=== PATIENT | female | born 1935 | race Two or more races ===

== ENCOUNTER 2021-07-05 10:20 | Outpatient (REF) | payer OTHER, SELFPAY ==
[2021-07-05 10:46] LABS: MANUAL DIFF FLAG NO
[2021-07-05 11:02] LABS: Basophils Percent Auto 0.3 % (0-2); Eosinophils Absolute Auto 0.2 X10*3/uL (0.0-0.4); Eosinophils Percent Auto 3.5 % (0-4); Hematocrit 33.8 % (37.0-47.0); Hemoglobin 10.8 g/dl (12.0-16.0); Imm Gran Abs Auto 0.01 X10*3/uL (0.00-0.03); Imm Gran Pct Auto 0.2 % (0.0-0.4); Lymphocytes Percent Auto 34.1 % (20-40); Mean Corpuscular Hemoglobin 28.1 pg (27.0-33.0); Mean Corpuscular Volume 87.8 fL (80.0-98.0); Mean Platelet Volume 9.5 fL (9.4-12.3); Monocytes Absolute Auto 0.6 X10*3/uL (0.1-1.2); Monocytes Percent Auto 9.3 % (2-11); Neutrophils Absolute Auto 3.1 x10*3/uL (2.0-8.3); Neutrophils Percent Auto 52.6 % (45-73); Platelet Count 300 X10*3/uL (160-400); Red Blood Count 3.85 X10*6/uL (4.20-5.50); Red Cell Distribution Width 13.7 % (11.0-16.0); White Blood Count 5.9 X10*3/uL (4.8-10.8)
[2021-07-05 11:40] LABS: Alanine Aminotransferase 10 U/L (0-31); Albumin Level 3.5 g/dL (3.5-5.0); Alkaline Phosphatase 82 U/L (39-117); Anion Gap 11 (12-20); Aspartate Amino Transferase 14 U/L (5-31); Bilirubin Total 0.5 mg/dL (0.0-1.0); Blood Urea Nitrogen 12 mg/dL (9-16); Calcium 9.5 mg/dL (8.4-10.2); Carbon Dioxide 26 mmol/L (22-29); Chloride 105 mmol/L (96-108); Cholesterol 220 mg/dL; Estimated Glomerular Filt Rate > 60; Glucose Random 153 mg/dL (60-115); HDL Cholesterol 42 mg/dL; LDL Cholesterol Calculated 155 mg/dl; Potassium 4.4 mmol/L (3.3-5.1); Sodium 138 mmol/L (135-145); Total Protein 6.7 g/dL (6.5-8.0); Triglycerides 117 mg/dL
[2021-07-05 11:58] LABS: Thyroid Stimulating Hormone 3.61 uIU/mL (0.32-4.0)
[2021-07-05 12:19] LABS: Creatinine Urine 41.76 mg/dL; Microalbum/Creatinine Ratio Ur 126.9 ug/mg cr
[2021-07-05 16:20] LABS: Vitamin B12 694 pg/mL (200-900)
== END 2021-07-05 10:21 | disposition home or self-care (01) ==
LOC: HO.LAB 10:20
PROVIDERS: PCP Internal Medicine; Visit Provider Internal Medicine
DX: Z00.01 Encounter for general adult medical examination with abnormal findings (principal); E11.65 Type 2 diabetes mellitus with hyperglycemia; G63 Polyneuropathy in diseases classified elsewhere; I10 Essential (primary) hypertension
CPT/HCPCS: 36415; 80053; 80061; 82043; 82607; 84443; 85025

== ENCOUNTER 2021-10-12 15:35 | Outpatient (REF) | payer OTHER, SELFPAY | END 2021-10-12 15:36 | disposition home or self-care (01) | LOC: HO.LAB 15:35 | PROVIDERS: PCP Internal Medicine; Visit Provider Internal Medicine | DX: Z13.89 Encounter for screening for other disorder (principal) ==

== ENCOUNTER 2022-08-28 12:35 | Outpatient (REF) | payer OTHER, SELFPAY ==
--- NOTE | ~2022-08-28 | XR_ITS ---
EXAMINATION: XR CHEST CLINICAL INFORMATION: Chronic cough x2 months. COMPARISON: None available. TECHNIQUE: 2 views of the chest were obtained. FINDINGS: Cardiomediastinal silhouette is normal. There are atherosclerotic calcifications in the thoracic aorta. No consolidation, pleural effusion or pneumothorax. Degenerative changes in the spine. XR/XR chest 2V IMPRESSION: No acute process.
== END 2022-08-28 12:36 | disposition home or self-care (01) ==
LOC: HO.HHCX 12:35
PROVIDERS: Visit Provider Registered Nurse
DX: R05.3 Chronic cough (principal)
CPT/HCPCS: 71046

== ENCOUNTER 2022-09-05 12:54 | Outpatient (AMB) | payer OTHER, SELFPAY ==
--- NOTE | 2022-09-05 13:21 | MHC.OFFVIS ---
Intake Vital Signs 09/05/22 13:33 Height 5 ft 2 in BMI Reason not done Patient refused/unable BP 118/54 L Blood Pressure Location Lt brachial Position Sitting Pulse 88 Pulse Source Pulse Oximeter Pulse Oximetry (%) 91 L Oxygen Delivery Method Room Air Intake Visit Reasons: Cough Intake Note: pt is here for a cough for 2 months, some phelgm. she does have shortness of breath, Cast Shell Grinder Required: Yes Cast Shell Grinder Name: lor Allergies penicillamine Allergy (Verified 09/05/22 13:36) rash HPI Cough HPI Details Tiff is a pleasant 87 year old female, never smoker, with underlying asthma. She was referred by her PCP for chronic dry cough. She is in a wheelchair and accompanied by her daughter. She states she is unable to walk due to knee pain and weakness. She reports ongoing cough for the past two months that has been unchanged despite OTC medications, including Mucinex and tessalon perles. She was also prescribed an albuterol inhaler but has not used. She reports dyspnea and wheezing along with allergic symptoms. She had CXR at the start of symptoms which did not reveal any acute processes. She does have a history of childhood asthma but denies any maintenance medications. She reports having a similar cough years ago and then when she moved to [place], the cough resolved. She did report getting 4 parakeets around the time of her symptoms started. She denies any known allergies to animals but does report environmental allergens. She is unsure of any family history of lung conditions. She did work in a factory for quite some time so there is a possibility of occupational exposures. [facility] Social History (Updated 09/05/22 @ 13:38 by Amber Huff Kayla) Patient Tobacco Use Status: Never used Tobacco Review of Systems Const Denies chills, Denies excessive sweating, Denies fever(s), Denies headache(s) and Denies night sweats Eyes Reports itchy eyes ENT Reports Normal hearing present, Denies headache(s), Denies nasal congestion, Denies post nasal drip and Denies sore throat Card Denies chest pain, Denies chest pain at rest, Denies chest pain with activity, Denies claudication, Denies leg edema, Reports dyspnea on exertion, Denies orthopnea and Denies paroxysmal nocturnal dyspnea Resp Denies chest congestion, Denies excessive phlegm production, Denies pain on inspiration, Denies pain with cough, Reports dyspnea on exertion, Denies stridor and Reports wheezing Musc Denies myalgias Neuro Reports Normal hearing present and Denies headache(s) Endo Denies excessive sweating Darin/Lymph Denies lymphadenopathy Aller/Immun Reports itchy eyes, Reports seasonal rhinorrhea and Reports wheezing Physical Exam Vital Signs: Last Vital Signs Pulse 88 09/05/22 13:33 BP 118/54 L 09/05/22 13:33 Pulse Ox 91 L 09/05/22 13:33 Oxygen Delivery Method Room Air 09/05/22 13:33 Const General: cooperative, healthy appearing, comfortable, no acute distress, well developed and alert Nutritional Appearance: obese Orientation/consciousness: patient oriented x3 Limitations: wheelchair HEENT Head: Yes normal to inspection, Yes normocephalic and Yes atraumatic Ears: hearing grossly normal bilaterally and external ears normal Eyes General: appearance normal, both eyes and all related structures Eyelids: Yes eyelids normal Sclerae: sclerae normal EOM: EOMs intact bilaterally Neck Neck: Yes normal visual inspection and Yes no lymphadenopathy Lymphatic: no lymphadenopathy noted Chest Chest palpation & inspection: normal inspection of the chest Resp Effort & Inspection: normal respiratory effort, able to speak in complete sentences, no audible wheezes, no cough, no stridor, not tachypneic, no tripod positioning and no use of accessory muscles Auscultation: clear to auscultation bilaterally Cardio Jugular venous distension: no JVD Rate: regular rate Rhythm: regular rhythm Skin Other: warm, dry General skin exam: no rashes or lesions noted Neuro General: patient oriented x3 Cranial nerves: Yes Normal hearing present Cognition (Neuro): normal cognition Gait exam (Neuro): Normal gait present Extrem General: Yes normal to inspection, Yes capillary refill normal, Yes no clubbing, cyanosis or edema and Yes no pedal edema Psych Appearance: grossly normal and well kempt Speech and movement: Normal speech and movement present and Clear speech present Affect: normal affect Attitude: cooperative Thought process: Normal thought process present Thought content: Normal thought content present Insight: Good insight present (Psych) Judgement: Good judgement present (Psych) Assessment & Plan Assessment & Plan (1) Asthma: Code(s): J45.909 - Unspecified asthma, uncomplicated (2) Cough: Code(s): R05.9 - Cough, unspecified (3) Environmental allergies: Code(s): Z91.09 - Other allergy status, other than to drugs and biological substances Plan Tiff's symptoms are likely related to underlying asthma with an allergic component. She notes worsening symptoms of cough and itchy eyes, dyspnea and occasional wheezing started around the same time she obtained 4 parakeets. Will send for PFT and CT chest to assess for a hypersensitivity reaction, as well as lab work. Encouraged patient to trial albuterol PRN and consider additional inhaler after PFT. All questions were answered and patient is in agreement of plan. Will follow up to review results. Orders: Orders Rast Allergen Today J45.909 - Unspecified asthma, uncomplicated, R05.9 - Cough, unspecified, Z91.09 - Other allergy status, other than to drugs and biological substances CT chest wo IV con Today R05.9 - Cough, unspecified Complete Blood Count Auto Diff Today J45.909 - Unspecified asthma, uncomplicated, R05.9 - Cough, unspecified, Z91.09 - Other allergy status, other than to drugs and biological substances Hypersensitive Pneumonitis Prf Today J45.909 - Unspecified asthma, uncomplicated, R05.9 - Cough, unspecified, Z91.09 - Other allergy status, other than to drugs and biological substances Immunoglobulin E Today J45.909 - Unspecified asthma, uncomplicated, R05.9 - Cough, unspecified, Z91.09 - Other allergy status, other than to drugs and biological substances Coding Level of Care Code New Pt Level 4 (26831) Diagnoses Asthma J45.909 Cough R05.9 Environmental allergies Z91.09
[2022-09-05 13:33] VITALS: BP 118/54; PULSE 88; O2SAT 91
== END 2022-09-05 14:08 | disposition home or self-care (01) ==
PROVIDERS: PCP Registered Nurse; Visit Provider Nurse Practitioner Family
DX: J45.909 Unspecified asthma, uncomplicated (principal); R05.9 Cough, unspecified; Z91.09 Other allergy status, other than to drugs and biological substances
CPT/HCPCS: 99204

== ENCOUNTER → 2022-09-05 12:54 | Outpatient (BNVA) | payer OTHER, SELFPAY | PROVIDERS: PCP Registered Nurse; Visit Provider Nurse Practitioner Family | DX: R06.02 Shortness of breath (principal); R05.9 Cough, unspecified; Z91.09 Other allergy status, other than to drugs and biological substances | CPT/HCPCS: 99202 ==

== ENCOUNTER 2023-12-10 16:32 | Outpatient (REF) | payer OTHER, SELFPAY ==
[2023-12-10 18:00] LABS: Hemoglobin 10.6 g/dl (12.0-16.0); Mean Corpuscular HGB Conc 32.1 g/dl (31.0-35.0); Mean Corpuscular Hemoglobin 29.2 pg (27.0-33.0); Mean Corpuscular Volume 90.9 fL (80.0-98.0); Mean Platelet Volume 9.7 fL (9.4-12.3); Platelet Count 265 X10*3/uL (160-400); Red Blood Count 3.63 X10*6/uL (4.20-5.50); Red Cell Distribution Width 13.4 % (11.0-16.0)
[2023-12-10 18:13] LABS: Alanine Aminotransferase 15 U/L (0-31); Albumin Level 3.8 g/dL (3.5-5.0); Alkaline Phosphatase 65 U/L (39-117); Anion Gap 12 (12-20); Aspartate Amino Transferase 22 U/L (5-31); Bilirubin Total 0.3 mg/dL (0.0-1.0); Blood Urea Nitrogen 19 mg/dL (9-16); Calcium 10.1 mg/dL (8.4-10.2); Carbon Dioxide 28 mmol/L (22-29); Chloride 104 mmol/L (96-108); Cholesterol 123 mg/dL (<200); Estimated Glomerular Filt Rate 58; Glucose Random 131 mg/dL (60-115); HDL Cholesterol 44 mg/dL (>40); LDL Cholesterol Calculated 46 mg/dL (<100); Potassium 4.5 mmol/L (3.3-5.1); Sodium 139 mmol/L (135-145); Total Protein 7.4 g/dL (6.5-8.0); Triglycerides 169 mg/dL (<150)
[2023-12-10 18:33] LABS: TSH reflex Free T4 2.77 uIU/mL (0.32-4.0); Vitamin D 25-OH Total 39.7 ng/mL (>30)
[2023-12-10 19:00] LABS: Folate 13.9 ng/mL (> or = 4.0); Vitamin B12 743 pg/mL (200-900)
[2023-12-11 05:23] LABS: Estimated Average Glucose 203 mg/dL; Hemoglobin A1C 196.2538 umol/L; Hemoglobin A1c % 8.7 % (<6.0); Total Hemoglobin (HGBA1C) 2731.6709 umol/L
[2023-12-11 09:56] LABS: Syphilis Screen Nonreactive (Nonreactive)
[2023-12-11 10:25] LABS: HBS Num1 3.85 mIU/mL (0-7.99); HBc Num1 0.15 S/CO (0.00-0.79); HBsAGNum1 0.45 S/CO (0.00-0.99); HIV AB/AG Nonreactive (Nonreactive); HIV Num 1 0.05 S/CO (0.00-0.99); Hepatitis B Core Antibody Nonreactive (Nonreactive); Hepatitis B Surface Antigen Negative (Negative); ~HepC Num1 0.11 S/CO (0.00-0.79); ~Hepatitis B Surface Antibody NONREACTIVE (Nonreactive); ~Hepatitis C Antibody Nonreactive (Nonreactive)
[2023-12-11 14:35] LABS: Iron 59 mcg/dL (30-160); Percent Iron Saturation 21 % (15-50); Total Iron Binding Capacity 275 mcg/dL (228-428); Unsaturated Iron Binding 216 ug/dL
[2023-12-11 14:55] LABS: Ferritin 34 ng/mL (10-250)
== END 2023-12-10 16:33 | disposition home or self-care (01) ==
LOC: HO.HHCL 16:32
PROVIDERS: Visit Provider Student in an Organized Health Care Education/Training Program
DX: Z00.00 Encounter for general adult medical examination without abnormal findings (principal); Z13.1 Encounter for screening for diabetes mellitus
CPT/HCPCS: 36415; 80053; 80061; 82306; 82607; 82728; 82746; 83036; 83540; 84443; 85027; 86704; 86706; 86780; 86803; 87340; 87389

== ENCOUNTER 2024-01-22 06:00 | Outpatient (REF) | payer MEDICARE, MEDICAID, SELFPAY ==
[2024-01-23 12:35] LABS: Creatinine Urine 50.71 mg/dL; Microalbum/Creatinine Ratio Ur 256.3 ug/mg cr (<30)
== END 2024-01-22 06:01 | disposition home or self-care (01) ==
LOC: HO.HHCL 06:00
PROVIDERS: Visit Provider Student in an Organized Health Care Education/Training Program
DX: Z00.00 Encounter for general adult medical examination without abnormal findings (principal)
CPT/HCPCS: 82043; 82570